=== PATIENT | male | born 1985 | race Caucasian/White ===

== ENCOUNTER 2023-01-18 18:03 | Emergency (ER) | payer OTHER ==
[~2023-01-18] VITALS: Ht 170.1 cm; Wt 95.3 kg
[2023-01-18] MEDS ORDERED: SUBOXONE 8 MG-1 EACH PO (18:11)
[2023-01-18] MEDS ORDERED: OMEPRAZOLE40 MG PO (18:12)
== END 2023-01-18 19:56 | disposition home or self-care (01) ==
LOC: ED 18:03
DX: S92.342A Displaced fracture of fourth metatarsal bone, left foot, initial encounter for closed fracture (principal); V49.9XXA Car occupant (driver) (passenger) injured in unspecified traffic accident, initial encounter; Y93.89 Activity, other specified; Y92.89 Other specified places as the place of occurrence of the external cause; Y99.8 Other external cause status